=== PATIENT | male | born 1995 | race Caucasian/White ===

== ENCOUNTER 2024-06-23 01:36 | Emergency (ER) | payer SELFPAY ==
[2024-06-23] MEDS: Aluminum Hydroxide/Magnesium Hydroxide/Simethicone Susp 30 ML Cup PO ONE (04:42)
[2024-06-23] MEDS: Cyclobenzaprine 10 MG Tab PO ONE (04:42)
[2024-06-23] MEDS: Famotidine 20 MG Tab PO ONE (04:42)
== END 2024-06-23 05:55 | disposition home or self-care (01) ==
LOC: MW.ED 01:36
DX: K21.9 Gastro-esophageal reflux disease without esophagitis (principal); R09.1 Pleurisy; Z88.0 Allergy status to penicillin; Z79.899 Other long term (current) drug therapy
CPT/HCPCS: 99283; A9270